=== PATIENT | male | born 1990 | race Asian ===

== ENCOUNTER 2023-10-29 20:30 | Inpatient (IN) | payer OTHER ==
[~2023-10-29] VITALS: Ht 175.3 cm; Wt 103.9 kg
[2023-10-29 22:42] LABS: BASOPHILS % 0.5 % (0.0-2.0); EOSINOPHILS % 0.4 % (0.0-5.0); HEMATOCRIT. 45.5 % (42.0-52.0); HEMOGLOBIN. 15.6 g/dL (14.0-18.0); LYMPHOCYTES % 11.1 % (20.0-50.0); MEAN CORPUSCULAR HEMOGLOBIN 30.3 pg (28.0-32.0); MEAN CORPUSCULAR HGB CONC 34.3 g/dL (31.0-37.0); MEAN CORPUSCULAR VOLUME 88.2 fL (80.0-94.0); MEAN PLATELET VOLUME 8.5 fl (7.4-10.4); MONOCYTES % 6.5 % (2.0-8.0); NEUTROPHILS % 81.5 % (40.0-76.0); PLATELET 273 x1000/uL (130-400); RED BLOOD CELL COUNT 5.16 mill/uL (4.7-6.1); RED CELL DISTRIBUTION WIDTH 13.4 % (11.6-14.6); WHITE BLOOD COUNT 9.2 x1000/uL (4.5-11.0)
[2023-10-29 22:56] LABS: ALANINE AMINOTRANSFERASE 49 IU/L (10-49); ALBUMIN 5.1 g/dL (3.2-4.8); ASPARTATE AMINOTRANSFERASE 27 IU/L (<34); BILIRUBIN TOTAL 0.6 mg/dL (0.1-1.0); CALCIUM 9.4 mg/dL (8.7-10.4); CARBON DIOXIDE 26 mEq/L (21-32); CHLORIDE 105 mEq/L (98-107); CREATININE 0.9 mg/dL (0.6-1.3); GLUCOSE 216 mg/dL (70-105); POTASSIUM 4.6 mEq/L (3.5-5.1); PROTEIN TOTAL 8.8 g/dL (6.0-8.3); SODIUM 138 mEq/L (136-145); UREA NITROGEN BLOOD 10 mg/dL (9-23)
[2023-10-29 22:57] LABS: TROPONIN I HIGH SENSITIVITY < 4 ng/L (3.0-53)
[2023-10-29 22:59] LABS: CLARITY URINE CLEAR (CLEAR); COLOR URINE YELLOW (YELLOW); GLUCOSE URINE TRACE (NEGATIVE); KETONES URINE NEGATIVE (NEGATIVE); LEUKOCYTE ESTERASE URINE NEGATIVE (NEGATIVE); NITRITE URINE NEGATIVE (NEGATIVE); OCCULT BLOOD URINE NEGATIVE (NEGATIVE); PH URINE 6.5 (4.5-8.0); PROTEIN URINE NEGATIVE (NEGATIVE); SPECIFIC GRAVITY URINE 1.005 (1.005-1.030); UROBILINOGEN URINE 0.2 E.U./dL (0.2-1.0)
[2023-10-30 00:07] LABS: RBC URINE 0-2 /hpf (0-2); WBC URINE NONE SEEN /hpf (0-2)
[2023-10-30 00:08] LABS: BACTERIA URINE NONE SEEN; SQUAMOUS EPITHELIAL CELL URINE NONE SEEN /lpf (RARE/1+)
[2023-10-30] MEDS: HYDRALAZINE HCL 10MG TABLET PO ONE (00:11)
[2023-10-30] MEDS: HYDRALAZINE 20MG/ML VIAL IV PRN (03:13)
[2023-10-30] MEDS ORDERED: LOSA25TA26 PO (04:03)
[2023-10-30] MEDS ORDERED: METF-414 MT (04:03)
[2023-10-30 04:17] VITALS: BP 145/109; PULSE 76; RESP 19; TEMP 97.6
[2023-10-30 05:11] VITALS: BP 157/99
[2023-10-30 08:00] VITALS: BP 111/84; PULSE 80; RESP 16; TEMP 98.6
[2023-10-30] MEDS: AMLODIPINE 10MG TABLET PO SCH (08:12)
[2023-10-30] MEDS: LOSARTAN 50 MG TABLET PO SCH (08:12)
[2023-10-30] MEDS: METFORMIN HCL 500MG TABLET PO SCH (08:12)
[2023-10-30 11:14] LABS: BASOPHILS % 0.4 % (0.0-2.0); EOSINOPHILS % 2.1 % (0.0-5.0); HEMATOCRIT. 46.6 % (42.0-52.0); HEMOGLOBIN. 15.7 g/dL (14.0-18.0); LYMPHOCYTES % 17.1 % (20.0-50.0); MEAN CORPUSCULAR HEMOGLOBIN 29.5 pg (28.0-32.0); MEAN CORPUSCULAR HGB CONC 33.8 g/dL (31.0-37.0); MEAN CORPUSCULAR VOLUME 87.2 fL (80.0-94.0); MEAN PLATELET VOLUME 8.6 fl (7.4-10.4); MONOCYTES % 11.9 % (2.0-8.0); NEUTROPHILS % 68.5 % (40.0-76.0); PLATELET 241 x1000/uL (130-400); RED BLOOD CELL COUNT 5.34 mill/uL (4.7-6.1); RED CELL DISTRIBUTION WIDTH 13.2 % (11.6-14.6); WHITE BLOOD COUNT 8.1 x1000/uL (4.5-11.0)
[2023-10-30] MEDS: CLONIDINE 0.1MG TABLET PO PRN (11:27)
[2023-10-30 11:57] LABS: CALCIUM 9.3 mg/dL (8.7-10.4); CARBON DIOXIDE 25 mEq/L (21-32); CHLORIDE 103 mEq/L (98-107); CHOLESTEROL 211 mg/dL (<200); CREATININE 0.8 mg/dL (0.6-1.3); GLUCOSE 204 mg/dL (70-105); HDL CHOLESTEROL 44 mg/dL (>55); LDL CHOLESTEROL 150 mg/dL (5-100); POTASSIUM 3.8 mEq/L (3.5-5.1); SODIUM 138 mEq/L (136-145); TRIGLYCERIDE 233 mg/dL (0-150); UREA NITROGEN BLOOD 9 mg/dL (9-23)
[2023-10-30 12:00] VITALS: BP 120/84; PULSE 80; RESP 18; TEMP 98.3
[2023-10-30] MEDS ORDERED: CLON0.1T PO (13:56)
[2023-10-30] MEDS ORDERED: METF-414 PO (13:56)
[2023-10-30] MEDS ORDERED: AMLO10TA80 PO (13:56)
[2023-10-30 14:12] VITALS: BP 163/118; PULSE 80; TEMP 98.6; O2SAT 97
[2023-10-30 16:00] VITALS: BP 120/84; PULSE 68; RESP 20; TEMP 98.3
== END 2023-10-30 18:20 | disposition home or self-care (01) | DRG 305 ==
LOC: ER 20:30 → 3WST 10-30 01:05 → EDBEDREQ 10-30 01:18 → EDBEDREQSVC 10-30 01:18 → EDBEDREQTM 10-30 01:18
PROVIDERS: ADMIT Internal Medicine; ATTEND Internal Medicine
DX: I16.0 Hypertensive urgency (principal); I10 Essential (primary) hypertension; E11.9 Type 2 diabetes mellitus without complications
CPT/HCPCS: 36415; 71045; 80048; 80053; 80061; 81003; 82962; 83036; 84484; 85025; 93005; 99285; J0360